=== PATIENT | female | born 1980 | race Native Hawaiian/Other Pacific Islander ===

== ENCOUNTER 2017-03-27 16:55 | Outpatient (CLI) | payer OTHER | END 2017-03-27 19:13 | disposition home or self-care (01) | LOC: RAD 16:55 | DX: R10.31 Right lower quadrant pain (principal) ==

== ENCOUNTER 2017-03-29 21:51 | Emergency (ER) | payer OTHER ==
[~2017-03-29] VITALS: Ht 165.1 cm; Wt 137.4 kg
== END 2017-03-29 22:53 | disposition home or self-care (01) ==
LOC: ED 21:51
PROC: 2W3LX1Z Immobilization of Right Lower Extremity using Splint (ICD-10-PCS; principal; 2017-03-29)
DX: M25.561 Pain in right knee (principal); W17.2XXA Fall into hole, initial encounter; Y92.89 Other specified places as the place of occurrence of the external cause
CPT/HCPCS: 99283; L1830

== ENCOUNTER 2017-04-13 10:31 | Outpatient (CLI) | payer OTHER | END 2017-04-13 11:40 | disposition home or self-care (01) | LOC: MRI 10:31 | DX: M25.461 Effusion, right knee (principal) ==

== ENCOUNTER 2021-11-11 08:58 | Outpatient (CLI) | payer OTHER ==
[~2021-11-11] VITALS: Ht 165.1 cm; Wt 154.2 kg
== END 2021-11-11 20:25 | disposition home or self-care (01) ==
LOC: INF 08:58
PROVIDERS: ATTEND Family Medicine
DX: U07.1 COVID-19 (principal); Z23 Encounter for immunization
CPT/HCPCS: 96365; M0244